=== PATIENT | female | born 1935 | race Caucasian/White ===

== ENCOUNTER 2021-09-15 11:56 | Inpatient (IN) | payer MEDICAID, MEDICARE ==
[~2021-09-15] VITALS: Ht 160 cm; Wt 43.3 kg
[2021-09-15] MEDS ORDERED: TRAZ-257 PO (12:31)
[2021-09-15] MEDS ORDERED: GUAI118S10 PO (12:31)
[2021-09-15] MEDS ORDERED: FAMO20TA8 PO (12:31)
[2021-09-15] MEDS ORDERED: SPIR25TA6 PO (12:31)
[2021-09-15] MEDS ORDERED: CHOL500050 PO (12:31)
[2021-09-15] MEDS ORDERED: ASCO500P18 PO (12:31)
[2021-09-15] MEDS ORDERED: ACET-2154 PO (12:31)
[2021-09-15] MEDS ORDERED: RISP2TAB85 PO (12:31)
[2021-09-15] MEDS ORDERED: ZINC SULFATE PO (12:31)
[2021-09-15] MEDS ORDERED: IV NORMAL SALINE 1000 ML BAG IV ONE (13:15)
[2021-09-15 13:31] LABS: HEMATOCRIT 47.3 % (31.2-41.9); MEAN CORPUSCULAR HEMOGLOBIN 31.1 uug (24.7-32.8); MEAN CORPUSCULAR VOLUME 96.8 fL (75.5-95.3); PLATELET COUNT (AUTO) 269 K/uL (179-408)
[2021-09-15 13:51] LABS: CREATINE KINASE, TOTAL 745 U/L (26-192)
[2021-09-15 13:54] LABS: ALANINE AMINOTRANSFERASE 51 U/L (14-59); ALKALINE PHOSPHATASE 86 U/L (50-136); ASPARTATE AMINOTRANSFERASE 57 U/L (15-37); BILIRUBIN,TOTAL 0.7 mg/dL (0.2-1.0); CARBON DIOXIDE 25 mmol/L (21-32); CREATININE 1.5 mg/dL (0.6-1.3); FERRITIN 790 ng/mL (8-252); GLUCOSE 184 mg/dL (74-106); LACTATE DEHYDROGENASE 275 U/L (81-234); TOTAL PROTEIN, SERUM 8.3 g/dL (6.4-8.2)
[2021-09-15 13:59] LABS: CHLORIDE 127 mmol/L (98-107); UREA NITROGEN, BLOOD 105 mg/dL (7-18)
--- NOTE | 2021-09-15 16:00 | NUR ---
Per he spoke with Dr. Razo and pt has been accepted for tele admission. There are no tele beds available at this time.
--- NOTE | 2021-09-15 19:00 | NUR ---
Hands off report given to TEENA Goodrich.
[2021-09-15] MEDS: risperiDONE 2 MG TABLET PO SCH (20:45)
[2021-09-15] MEDS ORDERED: GUAIFENESIN/DEXTROMETHORPHAN 5 ML UDC PO PRN (20:45)
[2021-09-15] MEDS ORDERED: ACETAMINOPHEN 325 MG TABLET PO PRN (20:45)
[2021-09-15] MEDS ORDERED: ALBUTEROL SULFATE 8 GM HFA.AER.AD IH PRN (20:45)
[2021-09-15] MEDS ORDERED: ONDANSETRON 4 MG/2 ML VIAL IV PRN (20:45)
[2021-09-15] MEDS ORDERED: ACETAMINOPHEN 325 MG TABLET-SA PATIENTS-PAIN ONLY PO PRN (20:45)
[2021-09-15] MEDS ORDERED: MORPHINE SULFATE 2 MG/1 ML DISP.SYRIN IV PRN (20:45)
[2021-09-15] MEDS ORDERED: TRAZODONE 100 MG TABLET PO SCH (21:00)
[2021-09-15] MEDS: CEFTRIAXONE 1 G in IV DEXTROSE 5% 50 ML IV SCH (21:00)
[2021-09-15] MEDS ORDERED: ENOXAPARIN SODIUM 40 MG/0.4 ML DISP.SYRIN SQ SCH (21:00)
[2021-09-15] MEDS ORDERED: VANCOMYCIN IV 750 MG in IV DEXTROSE 5% 250 ML IV SCH (21:00)
[2021-09-15] MEDS ORDERED: ENOXAPARIN SODIUM 40 MG/0.4 ML DISP.SYRIN SQ ONE (21:02)
[2021-09-15] MEDS ORDERED: DEXAMETHASONE SOD PHOSPHATE 10 MG INJ ONE (21:02)
[2021-09-15] MEDS ORDERED: TRAZODONE 100 MG TABLET ONE (21:02)
[2021-09-15] MEDS ORDERED: CEFTRIAXONE /D5W 50ML IVPB **ER PYXIS IV ONE (21:02)
[2021-09-15] MEDS: DEXAMETHASONE SOD PHOSPHATE 4 MG INJ IV SCH (21:24)
[2021-09-15] MEDS ORDERED: TEMAZEPAM 7.5 MG CAPSULE PO PRN (21:30)
--- NOTE | 2021-09-15 21:37 | NUR ---
pt unable to take po medication at this time
--- NOTE | 2021-09-15 23:14 | NUR ---
pt in bed, calm, no distress noted
[2021-09-16] MEDS: IV D5W 1000ML 1,000 ML IV PRN (01:14)
--- NOTE | 2021-09-16 01:54 | NUR ---
pt resting in bed
[2021-09-16 06:20] LABS: HEMATOCRIT 42.6 % (31.2-41.9); MEAN CORPUSCULAR HEMOGLOBIN 31.3 uug (24.7-32.8); MEAN CORPUSCULAR VOLUME 96.4 fL (75.5-95.3); PLATELET COUNT (AUTO) 209 K/uL (179-408)
[2021-09-16 07:14] LABS: BILIRUBIN,TOTAL 0.5 mg/dL (0.2-1.0); CREATININE 1.3 mg/dL (0.6-1.3); MAGNESIUM 3.1 mg/dL (1.8-2.4); PHOSPHOROUS 4.2 mg/dL (2.5-4.9); POTASSIUM 3.9 mmol/L (3.5-5.1); TOTAL PROTEIN, SERUM 7.5 g/dL (6.4-8.2)
--- NOTE | 2021-09-16 07:44 | NUR ---
Patient is sleeping. Opens eyes to touch. IV site clean, dry and intact. On monitor. On O2 via N/C at 4 L
[2021-09-16 08:23] LABS: THYROID STIMULATING HORMONE 0.604 mIU/mL (0.358-3.740)
[2021-09-16] MEDS ORDERED: VANCOMYCIN IV 500 MG in IV DEXTROSE 5% 100 ML IV ONE (09:00)
[2021-09-16] MEDS: ASCORBIC ACID 500 MG TABLET PO SCH (09:00)
[2021-09-16] MEDS: ZINC SULFATE 220 MG CAPSULE PO SCH (09:00)
[2021-09-16] MEDS: DEXAMETHASONE SOD PHOSPHATE 4 MG INJ IV SCH ×2 (09:00→21:53)
[2021-09-16] MEDS: CHOLECALCIFEROL 1,000 UNIT TABLET PO SCH (09:00)
[2021-09-16] MEDS ORDERED: FAMOTIDINE 20 MG TABLET PO SCH (09:00)
[2021-09-16] MEDS: risperiDONE 2 MG TABLET PO SCH (09:00)
[2021-09-16] MEDS: PANTOPRAZOLE SODIUM 40 MG TABLET.DR PO SCH (09:02)
--- NOTE | 2021-09-16 09:30 | NUR ---
Patient is not speaking. She looks at me but I am unsure if she understands me. She looks at risk for swallowing issues, unsure if she can swallow all the meds ordered. I will assess swallowing before giving pills
--- NOTE | 2021-09-16 09:37 | NUR ---
Patient is unable to swallow, I will hold her PO meds and notify Dr Mcclain
[2021-09-16] MEDS ORDERED: DEXAMETHASONE SOD PHOSPHATE 4 MG INJ ONE ×2 (10:14→22:05)
[2021-09-16] MEDS ORDERED: PANTOPRAZOLE SODIUM 40 MG TABLET.DR PO ONE (10:15)
[2021-09-16] MEDS ORDERED: CHOLECALCIFEROL 1,000 UNIT TABLET ONE (10:15)
[2021-09-16] MEDS ORDERED: ASCORBIC ACID 500 MG TABLET ONE (10:15)
[2021-09-16] MEDS ORDERED: VANCOMYCIN HCL 500 MG VIAL ONE (10:15)
--- NOTE | 2021-09-16 11:45 | NUR ---
Per CT scan staff, CT is delayed due to patient's elevated BUN and inability to obtain consent at this time
--- NOTE | 2021-09-16 11:52 | NUR ---
Dr Mcclain notified that patient cannot swallow her meds due to safety (inability to swallow)
--- NOTE | 2021-09-16 14:56 | NUR ---
Patient had blood mixed with mucous like stool in her diaper. Moderate amount. No clots noted. Dr Mcclain notified.
[2021-09-16] MEDS ORDERED: ACETAMINOPHEN 650 MG SUPP.RECT RC PRN (16:15)
[2021-09-16] MEDS: PANTOPRAZOLE SODIUM 40 MG VIAL IV SCH (16:33)
--- NOTE | 2021-09-16 19:10 | NUR ---
Thorough and [facility]. Pt is stable, VSS, AAOx0, pt is aphasic and does not follow commands or answer questions. Skin looks ok, legs appear a little contracted. Withdraws from pain, GCS of 14. good distal pulses x4ext. no s/sx of pain, sob, n/v or discomfort noted. Will be hanging abx shortly.
[2021-09-16] MEDS: CEFTRIAXONE 1 G in IV DEXTROSE 5% 50 ML IV SCH (19:15)
--- NOTE | 2021-09-16 19:31 | NUR ---
Hand off report given to Naz DICKINSON
[2021-09-16] MEDS ORDERED: CEFTRIAXONE /D5W 50ML IVPB **ER PYXIS IV ONE (20:31)
[2021-09-16] MEDS ORDERED: ATORVASTATIN 10 MG TABLET PO SCH (21:00)
[2021-09-16] MEDS: ENOXAPARIN SODIUM 30 MG/0.3 ML DISP.SYRIN SUBCUT SCH (21:54)
[2021-09-16] MEDS ORDERED: ENOXAPARIN SODIUM 30 MG/0.3 ML DISP.SYRIN ONE (22:05)
--- NOTE | 2021-09-16 22:08 | NUR ---
Bed assignment given, pt will be going to room 306. Was told to call in 30min because room were being cleaned. will be calling report shortly
--- NOTE | 2021-09-16 22:27 | NUR ---
Called tele to give report on pt, Maggie said she will call me back in 10min.
--- NOTE | 2021-09-16 23:30 | NUR ---
Admitted a 85 years old fem,german with Dx of COVID+. Patient alert but non-verbal, only makes nonsensical sound to tactile stimuli. In no apparent distress. On O2 at 4LPM via NC in place. O2 sat at 100%. NSR on tele with HR of 85/min. IV site on left wrist area intact and patent. IVF infusing. Routine admission care done. Plan of care initiated. COVID precaution observed. Safety measure initiated and call light within reached.
--- NOTE | 2021-09-17 00:34 | NUR ---
Pt transfered to [id number] without difficulty or incident. Pt placed on bed in pos of comfort connected to 5L O2 NC. COPRA PROCESSOR at bedside to check VS.
[2021-09-17] MEDS: IV D5W 1000ML 1,000 ML IV PRN ×2 (00:40→19:37)
[2021-09-17 00:47] VITALS: BP 125/80
[2021-09-17 04:00] VITALS: BP 100/60
--- NOTE | 2021-09-17 05:00 | NUR ---
Patient pulled out IV. Inserted new IV on left wrist #22G.
--- NOTE | 2021-09-17 06:19 | NUR ---
In no acute distress. IV site on left wrist remains intact and patent. IVF infusing. O2 at 4LPM via NC. COVID precaution maintained. Safety measure maintained.
[2021-09-17 06:40] LABS: HEMATOCRIT 41.9 % (31.2-41.9); MEAN CORPUSCULAR VOLUME 97.9 fL (75.5-95.3); PLATELET COUNT (AUTO) 179 K/uL (179-408)
[2021-09-17 07:01] LABS: CREATININE 1.3 mg/dL (0.6-1.3); MAGNESIUM 3.2 mg/dL (1.8-2.4); PHOSPHOROUS 3.3 mg/dL (2.5-4.9); POTASSIUM 4.2 mmol/L (3.5-5.1); VANCOMYCIN,RANDOM 4.5 ug/mL (18.0-26.0)
--- NOTE | 2021-09-17 08:00 | NUR ---
Received PT resting in bed in no acute distress. received critical labs results from the lab of Sodium 166 Chloride 127 BUN 91 relayed labs results to DR Mcclain with NNO at this time IV site on left wrist remains intact and patent. IVF infusing D5Wat 80 ml /Hr. O2 at 4LPM via NC. COVID precaution maintained. Safety measure maintained.
[2021-09-17] MEDS: DEXAMETHASONE SOD PHOSPHATE 4 MG INJ IV SCH ×2 (08:32→20:30)
[2021-09-17] MEDS: PANTOPRAZOLE SODIUM 40 MG VIAL IV SCH (08:33)
[2021-09-17] MEDS: VANCOMYCIN IV 500 MG in IV DEXTROSE 5% 100 ML IV SCH ×2 (10:20→21:24)
[2021-09-17 12:29] VITALS: BP 128/85
[2021-09-17] MEDS ORDERED: SWABABLE VALVE TRANSFER SET EA MC ONE (12:47)
[2021-09-17] MEDS ORDERED: IOHEXOL 350 100 ML INFUS..BTL ONE (12:47)
[2021-09-17] MEDS ORDERED: IV NORMAL SALINE 250 ML IV ONE (12:47)
--- NOTE | 2021-09-17 14:33 | NUR ---
[facility] Clinical Note: SW was not able to meet with pt for tele consult due to pt covid positive. SW tried to speak to the pt from a distance, however pt was asleep and not responding. SW contacted pt's son, Willy ([phone]) from face sheet and left a voicemail for a call back to discuss pt. [facility] was not able to gather information on the pt and SW will follow-up again with pt and son.
[2021-09-17 16:00] VITALS: BP 134/79
[2021-09-17] MEDS: ENSURE ENLIVE (VAN) 240 ML LIQUID PO SCH (17:03)
[2021-09-17] MEDS: CEFTRIAXONE 1 G in IV DEXTROSE 5% 50 ML IV SCH (18:35)
[2021-09-17 20:00] VITALS: BP 124/83
--- NOTE | 2021-09-17 20:00 | NUR ---
Left wrist peripheral IV noted leaking. Midline on left upper arm non functional. Removed left wrist IV site. Started new peripheral IV on right FA #22G.
[2021-09-17] MEDS: ENOXAPARIN SODIUM 30 MG/0.3 ML DISP.SYRIN SUBCUT SCH (20:30)
--- NOTE | 2021-09-17 22:38 | NUR ---
Midline on left upper arm that was placed during the day shift is non-functional. New midline placed on right upper arm #18 G by TEENA Wilson. Will discontinue midline on left upper arm.
[2021-09-18] VITALS: BP 104/66
[2021-09-18 04:50] VITALS: BP 128/81
--- NOTE | 2021-09-18 05:52 | NUR ---
Noted patient with bruise and a skin tear on right holloway area with scant amount of bleeding. Picture taken. Cleanse with saline, pat dry and cover with Mepilex.
--- NOTE | 2021-09-18 06:37 | NUR ---
In no acute distress. Slept well last night. IV fluids infusing. Needs assessed and attended to. COVID precaution maintained. Safety measure maintained and call light within reached.
[2021-09-18 08:00] LABS: HEMATOCRIT 38.1 % (31.2-41.9); MEAN CORPUSCULAR HEMOGLOBIN 31.1 uug (24.7-32.8); MEAN CORPUSCULAR VOLUME 96.2 fL (75.5-95.3); PLATELET COUNT (AUTO) 142 K/uL (179-408)
[2021-09-18 08:23] LABS: BILIRUBIN,TOTAL 0.5 mg/dL (0.2-1.0); MAGNESIUM 3.2 mg/dL (1.8-2.4); PHOSPHOROUS 4.2 mg/dL (2.5-4.9); POTASSIUM 4.8 mmol/L (3.5-5.1); TOTAL PROTEIN, SERUM 7.1 g/dL (6.4-8.2)
[2021-09-18] MEDS: PANTOPRAZOLE SODIUM 40 MG VIAL IV SCH (09:33)
[2021-09-18] MEDS: DEXAMETHASONE SOD PHOSPHATE 4 MG INJ IV SCH ×2 (09:33→20:24)
[2021-09-18] MEDS: ENSURE ENLIVE (VAN) 240 ML LIQUID PO SCH ×3 (09:34→17:18)
--- NOTE | 2021-09-18 09:39 | NUR ---
WOUND CARE CONSULT: REVIEWED CHART, NURSING DOCUMENTATION AND PHOTOS WHICH INDICATE LOWER EXTREMITY CLOSED SKIN TEAR AND DEEP TISSUE INJURY TO SACRAL AREA EXTENDING TO BUTTOCKS, PRESENT ON ADMISSION. RECOMMENDATIONS MADE FOR SKIN PROTECTION AND WOUND CARE. DISCUSSED WITH NURSING STAFF. MD IN AGREEMENT WITH PLAN OF CARE.
--- NOTE | 2021-09-18 10:00 | NUR ---
pt refusing to eat breakfast, unwilling to try small bites
[2021-09-18] MEDS: VANCOMYCIN IV 500 MG in IV DEXTROSE 5% 100 ML IV SCH ×2 (10:09→21:29)
[2021-09-18 11:41] VITALS: BP 116/55
--- NOTE | 2021-09-18 13:00 | NUR ---
pt refusing to eat lunch, will try again in a bit
--- NOTE | 2021-09-18 13:29 | NUR ---
[facility] Clinical Note Update: [facility] contacted pt's son Santana, ([phone]) who stated that the pt's continuation of care will [facility] [address] [facility] [place] [address] ([phone]) in the Memory Care unit due to pt's recent diagnosis of dementia per pt's son Santana. Santana stated that the DON of nursing at the [facility], Lashell is the one who takes care of the pt and knows all of the necessary information needed for pt. Santana also reported that if he is not able to be reached, his Yanira ([phone]) is the next available contact for pt. Per santana, further information needed for pt can be gathered by Lashell at the [facility].
[2021-09-18 16:38] VITALS: BP 111/67
[2021-09-18] MEDS: IV D5W 1000ML 1,000 ML IV PRN (17:21)
--- NOTE | 2021-09-18 17:40 | NUR ---
inge called to report MRSA + of both nares, notified
--- NOTE | 2021-09-18 19:30 | NUR ---
Received patient lying in bed. Asleep but arouse to tactile stimuli. Confused and disoriented. O2 at 2LPM via NC in place. O2 sat at 96%. Midline on right upper arm and peripheral IV on right FA intact and patent. IVF infusing. COVID precaution observed. Safety measure initiated and call light within reached.
[2021-09-18] MEDS: ENOXAPARIN SODIUM 30 MG/0.3 ML DISP.SYRIN SUBCUT SCH (20:24)
[2021-09-18] MEDS: CEFTRIAXONE 1 G in IV DEXTROSE 5% 50 ML IV SCH (20:24)
[2021-09-18] MEDS: MUPIROCIN 2% OINT 22 GM TUBE NS SCH (20:26)
[2021-09-18 20:36] VITALS: BP 120/72
[2021-09-19] VITALS: BP 169/93
[2021-09-19] MEDS: IV D5W 1000ML 1,000 ML IV PRN ×2 (05:36→17:09)
--- NOTE | 2021-09-19 06:43 | NUR ---
Patient sleeping most of the night. Appears withdrawn. Only makes sound to tactile and painful stimuli. IV fluids continue to infuse. No side effect noted from Iv antibiotics. COVID precaution maintained.
[2021-09-19 07:30] LABS: HEMATOCRIT 33.4 % (31.2-41.9); MEAN CORPUSCULAR HEMOGLOBIN 31.2 uug (24.7-32.8); MEAN CORPUSCULAR VOLUME 95.5 fL (75.5-95.3); PLATELET COUNT (AUTO) 120 K/uL (179-408)
[2021-09-19 07:55] LABS: CREATININE 0.8 mg/dL (0.6-1.3); MAGNESIUM 2.8 mg/dL (1.8-2.4); PHOSPHOROUS 3.7 mg/dL (2.5-4.9); POTASSIUM 4.3 mmol/L (3.5-5.1)
[2021-09-19] MEDS: VANCOMYCIN IV 500 MG in IV DEXTROSE 5% 100 ML IV SCH ×2 (08:44→18:24)
[2021-09-19] MEDS: DEXAMETHASONE SOD PHOSPHATE 4 MG INJ IV SCH ×2 (08:45→21:13)
[2021-09-19] MEDS: PANTOPRAZOLE SODIUM 40 MG VIAL IV SCH (08:45)
[2021-09-19] MEDS: MUPIROCIN 2% OINT 22 GM TUBE NS SCH ×2 (08:45→18:17)
[2021-09-19] MEDS: ENSURE ENLIVE (VAN) 240 ML LIQUID PO SCH ×3 (09:00→17:00)
--- NOTE | 2021-09-19 10:00 | NUR ---
APPETITE REMAINS POOR PATIENT IS REFUSING TO EAT REFUSING TO DRINK HER ENSURE MJD AWARE TOTALLY DEPENDENT FOR ALL ADL TUNED AND REPOSITIONED Q2H CONTINUE WITH IVF [id number] REMAIN ON IV ANTIBIOTICS ORDERED WITH NO ADVERSE OR ALLERGIC REACTIONS AT THIS TIME REMAIN ON COVID ISOLATION ON O2 AT 2L WITH NO SHORTNESS OF BREATH AT THIS TIME WILL CONTINUE TO OBSERVE.
[2021-09-19 11:53] VITALS: BP 167/69
[2021-09-19 16:21] VITALS: BP 106/61
--- NOTE | 2021-09-19 18:37 | NUR ---
ATTEMPTING TO REMOVE HER IV WITH HER LEFT ARM HAS IV ON HER RIGHT ARM MD NOTIFIED AND MITTEN PLACED TO HER RIGHT ARM TO PREVENT HER FROM PULLING OUT THE LINE WITH HER LEFT ARM
[2021-09-19] MEDS: CEFTRIAXONE 1 G in IV DEXTROSE 5% 50 ML IV SCH (19:41)
[2021-09-19 19:55] VITALS: BP 144/66
[2021-09-19] MEDS: ENOXAPARIN SODIUM 30 MG/0.3 ML DISP.SYRIN SUBCUT SCH (21:14)
[2021-09-20 00:05] VITALS: BP 123/56
[2021-09-20 04:00] VITALS: BP 133/49
[2021-09-20] MEDS: IV D5W 1000ML 1,000 ML IV PRN (04:02)
[2021-09-20] MEDS: VANCOMYCIN IV 500 MG in IV DEXTROSE 5% 100 ML IV SCH (04:14)
[2021-09-20 04:20] LABS: *BILIRUBIN,URIN NEGATIVE (NEGATIVE); *BLOOD, URINE 2+ (NEGATIVE); *CLARITY,URINE CLEAR (CLEAR); *COLOR,URINE YELLOW (YELLOW); *KETONES,URINE NEGATIVE (NEGATIVE); *UROBILINOGEN,URINE 0.2 E.U./dl (NORMAL); LEUKOCYTE ESTERASE ,URINE NEGATIVE (NEGATIVE); NITRITE, URINE NEGATIVE (NEGATIVE); UGLUCOSE NEGATIVE (NEGATIVE)
[2021-09-20 04:29] LABS: BACTERIA,URINE FEW /HPF (NONE SEEN); SQUAMOUS EPITHELIAL CELL,UR MODERATE /HPF (NONE SEEN)
[2021-09-20 06:42] LABS: HEMATOCRIT 30.8 % (31.2-41.9); MEAN CORPUSCULAR HEMOGLOBIN 31.6 uug (24.7-32.8); PLATELET COUNT (AUTO) 103 K/uL (179-408)
--- NOTE | 2021-09-20 07:15 | NUR ---
RECEIVED PATIENT IN BED AWAKE CONFUSED AND DISORIENTED ALL NEEDS ANTICIPATED AND SATISFIED MAX ASSIST FOR ALL ADL ON O2 WITH NO SOB AT THIS TIME REMAIN ON COVID ISOLATION AND PRECAUTION LEFT ARM WITH MITTEN TO PREVENT HER FROM PULLING OUT HER IV LINE ON THE LEFT FA CHECKED FOR ADEQUATE CIRCULATION Q2H. IVF IN PROGRESS ORDERED WITH NO S/S OF INFILTERATION ON SITE.MADE COMFORTABLE WILL CONTINUE TO OBSERVE.
[2021-09-20 08:26] LABS: CREATININE 0.7 mg/dL (0.6-1.3); MAGNESIUM 2.5 mg/dL (1.8-2.4); PHOSPHOROUS 3.4 mg/dL (2.5-4.9); POTASSIUM 4.6 mmol/L (3.5-5.1)
[2021-09-20] MEDS: DEXAMETHASONE SOD PHOSPHATE 4 MG INJ IV SCH (08:30)
[2021-09-20] MEDS: ENSURE ENLIVE (VAN) 240 ML LIQUID PO SCH ×2 (08:36→12:05)
[2021-09-20] MEDS: MUPIROCIN 2% OINT 22 GM TUBE NS SCH (08:37)
[2021-09-20] MEDS: PANTOPRAZOLE SODIUM 40 MG VIAL IV SCH (08:37)
[2021-09-20] MEDS ORDERED: FUROSEMIDE 20 MG/2 ML VIAL IV ONE (11:45)
--- NOTE | 2021-09-20 12:07 | NUR ---
CALL RECEIVED FROM DR GARCIA STATED TO PREP PATIENT FOR DISCHARGE BACK TO [facility] TODAY STATED THAT THE PATIENTS SON IS AWARE AND AGREEABLE FOR PATIENT TO BE SENT BACK PER THE ATTIC FANS MECHANIC PATIENT WILL BE PICKED UP ABOUT 1400 BY THE AMBULANCE.
[2021-09-20] MEDS ORDERED: AZIT250T PO (12:27)
[2021-09-20] MEDS ORDERED: METH4TAB3 PO (12:27)
--- NOTE | 2021-09-20 12:52 | NUR ---
O2 SAT CHECKED ON ROOM AIR AFTER REMOVING THE O2 FOR 15 MINS AND ITS [id number] WILDER NOTIFIED PATIENT LEFT ON ROOM AIR.
--- NOTE | 2021-09-20 12:56 | NUR ---
RECEIVED RESULT FROM THE LAB PCR IS POSITIVE.
[2021-09-20 13:37] VITALS: BP 127/73
--- NOTE | 2021-09-20 13:45 | NUR ---
MARY ALICE AT [facility] ABLE TO TAKE PATIENT WITH POSITIVE PCR.
--- NOTE | 2021-09-20 14:40 | NUR ---
PATIENT DISCHARGED PICKED UP BY THE [facility] IN STABLE CONDITION ON ROOM AIR WITH SATS BETWEEN 91-93 PERCENT NO SHORTNESS OF BREATH AT THIS TIME DISCHARGE INSTRUCTIONS GIVEN TO THE AMBULANCE TECHS INCLUDING THAT PATIENT HAS BEEN REFUSING TO EAT AND DR GARCIA ORDERED MEDICATIONS FOR HER TO BE STARTED AT THE [facility]. PATIENT PERSONAL BELONGINGS IS A YELLOW BAND RING AND SHE IS WEARING IT AND A PAIR OF SOCKS SHE IS WEARING THEM MIDLINE REMOVED PATIENT REMAIN CONFUSED AND DISORIENTED UNCOOPERATIVE NOT IN DISTRESS AT THIS TIME.
== END 2021-09-20 14:40 | DRG 871 ==
LOC: ER 11:56 → TRANSITION 20:18 → TELE3 09-16 23:01
PROVIDERS: ADMIT Internal Medicine; ATTEND Internal Medicine
PROC: 05H533Z Insertion of Infusion Device into Right Subclavian Vein, Percutaneous Approach (ICD-10-PCS; principal; 2021-09-17)
PROC: B546ZZA Ultrasonography of Right Subclavian Vein, Guidance (ICD-10-PCS; 2021-09-17)
DX: A41.89 Other specified sepsis (principal); U07.1 COVID-19; J96.01 Acute respiratory failure with hypoxia; J12.82 Pneumonia due to coronavirus disease 2019; G92.8 Other toxic encephalopathy; N17.0 Acute kidney failure with tubular necrosis; E43 Unspecified severe protein-calorie malnutrition; E87.0 Hyperosmolality and hypernatremia; D68.59 Other primary thrombophilia; E87.2 Acidosis; M62.82 Rhabdomyolysis; G30.9 Alzheimer's disease, unspecified; F02.80 Dementia in other diseases classified elsewhere, unspecified severity, without behavioral disturbance, psychotic disturbance, mood disturbance, and anxiety; E78.5 Hyperlipidemia, unspecified; E83.41 Hypermagnesemia; E86.0 Dehydration; E87.8 Other disorders of electrolyte and fluid balance, not elsewhere classified; E88.09 Other disorders of plasma-protein metabolism, not elsewhere classified; R73.9 Hyperglycemia, unspecified; I70.0 Atherosclerosis of aorta; Z66 Do not resuscitate
CPT/HCPCS: 36415; 70030-TC; 71045; 71275; 83605; 83615; 83735; 84100; 84443; 85025; 85730; 86140; 86803; 87040; 87086; 87806; 93005; 97161; A4663; A6209; C1758; C9113; G0378; J0696; J1100; J1650; J1940; J3370; J3535; J7030; J7050; J7060; J7070; Q9967; U0003